=== PATIENT | female | born 1980 | race Caucasian/White ===

== ENCOUNTER 2017-11-01 08:44 | Emergency (ER) | payer MEDICAID ==
[~2017-11-01] VITALS: Ht 162.6 cm; Wt 68.9 kg
[2017-11-01 08:49] VITALS: Ht 162.6 cm; Wt 68.9 kg
[2017-11-01 09:32] LABS: BASOPHIL % 0.7 % (0-2); CARBON DIOXIDE 29.3 mmol/L (21-32); CHLORIDE SERUM 100 mmol/L (98-107); CREATININE SERUM 0.7 mg/dL (0.6-1.0); GFR1 > 60 mL/min; GLUCOSE SERUM 93 mg/dL (74-106); PLATELET COUNT 371 x10^3mcL (130-400); POTASSIUM SERUM 3.7 mmol/L (3.5-5.1); RED CELL DISTRIBUTION WIDTH 13.6 % (11.5-14.5); SODIUM SERUM 139 mmol/L (136-145)
[2017-11-01 09:39] LABS: ALBUMIN 3.9 g/dL (3.4-5.0); ALKALINE PHOSPHATASE 73 U/L (46-116); ALT/SGPT 21 U/L (14-59); AST/SGOT 11 U/L (15-37); BILIRUBIN TOTAL 0.4 mg/dL (0.20-1.00); TOTAL PROTEIN, SERUM 7.9 g/dL (6.4-8.2)
[2017-11-01 12:37] VITALS: BP 118/70
== END 2017-11-01 12:37 | disposition home or self-care (01) ==
LOC: ED 08:44
PROVIDERS: Emergency Medicine
DX: R07.9 Chest pain, unspecified (principal)
CPT/HCPCS: 83880; J3010; J7030; Q0092

== ENCOUNTER 2020-11-06 15:54 | Emergency (ER) | payer OTHER ==
[~2020-11-06] VITALS: Ht 167.6 cm; Wt 68.0 kg
[2020-11-06 15:56] VITALS: BP 132/84; Ht 167.6 cm; Wt 68.0 kg
== END 2020-11-06 16:41 | disposition home or self-care (01) ==
LOC: ED 15:54
DX: U07.1 COVID-19 (principal); J45.909 Unspecified asthma, uncomplicated